=== PATIENT | male | born 1965 | race Caucasian/White ===

== ENCOUNTER 2017-01-19 05:00 | Emergency (ER) | payer OTHER ==
--- NOTE | 2017-01-19 05:15 | NUR ---
CALLED PT BUT NO ANSWER. ALSO CHECKED SURROUNDING AREAS OUTSIDE. PATIENT LEFT WITHOUT BEING SEEN BY DR. TABARES. NO FURTHER CARE PROVIDED FOR PATIENT.
== END 2017-01-19 05:15 | disposition left against medical advice (07) ==
LOC: MED 05:00
DX: R10.9 Unspecified abdominal pain (principal); Z53.21 Procedure and treatment not carried out due to patient leaving prior to being seen by health care provider